=== PATIENT | male | born 1935 | race Caucasian/White ===

== ENCOUNTER 2024-03-27 10:31 | Outpatient (REF) | payer OTHER, SELFPAY ==
[2024-03-27 12:58] LABS: Erythrocyte Sedimentation Rate 108 MM/HR (0-15)
== END 2024-03-27 10:32 | disposition home or self-care (01) ==
LOC: HO.LAB 10:31
PROVIDERS: Visit Provider Registered Nurse
DX: G44.209 Tension-type headache, unspecified, not intractable (principal)
CPT/HCPCS: 36415; 85652

== ENCOUNTER 2024-04-04 11:32 | Outpatient (REF) | payer OTHER, SELFPAY ==
[2024-04-04 14:23] LABS: Erythrocyte Sedimentation Rate 97 MM/HR (0-15)
== END 2024-04-04 11:33 | disposition home or self-care (01) ==
LOC: HO.LAB 11:32
PROVIDERS: Visit Provider Psychiatry & Neurology Neurology
DX: M31.6 Other giant cell arteritis (principal)
CPT/HCPCS: 36415; 85652